=== PATIENT | male | born 1930 | race Caucasian/White ===

== ENCOUNTER → 2016-04-15 | Outpatient (CLI) | payer MEDICARE ==
[2016-04-15 11:40] LABS: MEAN CORPUSCULAR HEMOGLOBIN 29.2 PG (26.0-34.0); MEAN CORPUSCULAR HGB CONC 33.4 g/dL (31.0-37.0); MEAN CORPUSCULAR VOLUME 87 FL (80-100); MEAN PLATELET VOLUME 9.3 FL (6.0-9.5); PLATELET COUNT 126 10^3uL (150-450); WHITE BLOOD COUNT 3.61 10^3uL (4.0-11.0)
[2016-04-15 11:50] LABS: BAND NEUTROPHILS % 6 % (0-6); EOSINOPHILS % 2 % (0-4); LYMPHOCYTES # 0.4 #; MONOCYTES % 1 % (3-11); RBC MORPH NORMAL (NORMAL); SEGMENTED NEUTROPHILS % 81 % (51-67); TOTAL CELLS COUNTED 100
[2016-04-15 12:17] LABS: ALBUMIN 3.8 g/dL (3.4-5.0); ANION GAP 13.4 MEQ/L (3-15); CALCULATED IONIZED CALCIUM 4.2 mg/dL (3.8-4.6); PHOSPHORUS 3.5 mg/dL (2.4-4.9); TOTAL PROTEIN 6.8 g/dL (6.4-8.5)
== END ==
LOC: LAB 11:28
PROVIDERS: ATTEND Internal Medicine Hematology & Oncology
DX: C82.01 Follicular lymphoma grade I, lymph nodes of head, face, and neck (principal)
CPT/HCPCS: 36415; 80053; 83615; 83735; 84100; 85007; 85027

== ENCOUNTER 2016-04-18 09:55 | Day surgery (SDC) | payer MEDICARE ==
[~2016-04-18] VITALS: Ht 182.9 cm; Wt 69.0 kg
[~2016-04-18 09:55] MED LIST: HEPARIN 5000 UNIT/0.5 ML SYRINGE ONE; LACTATED RINGERS 1,000 ML IV SCH; LIDOCAINE/EPINEPHRINE 1% 1:100,000 (XYLOCAINE) 30 ML VIAL INJ ONE; NS FLUSH 10 ML PRN IV; NS FLUSH 3 ML PRN IV; ceFAZolin 2,000 MG in SODIUM CHLORIDE VIAL (PF) 20 ML IV SCH
[2016-04-18 10:17] VITALS: BP 143/86
[2016-04-18] MEDS ORDERED: ALFENTANIL 500 MCG/ML (ALFENTA) 5 ML AMP IV ONE (11:48)
[2016-04-18] MEDS ORDERED: MIDAZOLAM 2 MG/2 ML (VERSED) VIAL ONE (11:48)
[2016-04-18] MEDS ORDERED: PROPOFOL 20 ML IV ONE (11:49)
[2016-04-18 13:22] VITALS: BP 125/73
[2016-04-18 13:35] VITALS: BP 112/56
[2016-04-18] MEDS ORDERED: morphine INJ 4 MG/ML 1 ML SYRINGE IV PRN (13:35)
[2016-04-18] MEDS ORDERED: ONDANSETRON 2 MG/ML (Z0FRAN) 2 ML VIAL IV PRN (13:35)
[2016-04-18] MEDS ORDERED: METOCLOPRAMIDE 10 MG/2 ML (REGLAN) VIAL IV PRN (13:35)
--- NOTE | 2016-04-18 13:50 | NUR ---
PATIENT AND SPOUSE ASK ABOUT TREATMENT THURSDAY AND WHEN TO ARRIVE. [facility] CONTACTED AND NURSE UNAVAILABLE. PATIENT AND SPOUSE ARE READY TO GO. WILL GIVE NUMBER TO [facility] TO CONTACT PATIENT AT HOME FOR TREATMENT PLAN FOR THURSDAY.
== END 2016-04-18 13:58 | disposition home or self-care (01) ==
LOC: ASC 09:55
PROVIDERS: ATTEND Surgery
DX: C82.90 Follicular lymphoma, unspecified, unspecified site (principal); E78.00 Pure hypercholesterolemia, unspecified; J45.909 Unspecified asthma, uncomplicated; Z95.0 Presence of cardiac pacemaker
CPT/HCPCS: 36561; 77001; 93005; C1788; J1644; J2250; J7120

== ENCOUNTER → 2016-04-28 | Outpatient (CLI) | payer MEDICARE ==
[2016-04-28 10:20] LABS: MEAN CORPUSCULAR HEMOGLOBIN 29.9 PG (26.0-34.0); MEAN CORPUSCULAR HGB CONC 32.8 g/dL (31.0-37.0); MEAN CORPUSCULAR VOLUME 91 FL (80-100); MEAN PLATELET VOLUME 9.8 FL (6.0-9.5); PLATELET COUNT 132 10^3uL (150-450); WHITE BLOOD COUNT 19.13 10^3uL (4.0-11.0)
[2016-04-28 10:41] LABS: BAND NEUTROPHILS % 4 % (0-6); EOSINOPHILS % 2 % (0-4); LYMPHOCYTES # 0.6 #; MONOCYTES # 1.5 #; MONOCYTES % 8 % (3-11); RBC MORPH NORMAL (NORMAL); SEGMENTED NEUTROPHILS % 83 % (51-67); TOTAL CELLS COUNTED 100
== END ==
LOC: LAB 09:57
PROVIDERS: ATTEND Internal Medicine Hematology & Oncology
DX: C82.01 Follicular lymphoma grade I, lymph nodes of head, face, and neck (principal)
CPT/HCPCS: 36415; 85025

== ENCOUNTER 2016-05-05 09:58 | Outpatient (RCR) | payer MEDICARE ==
[~2016-05-05 09:58] MED LIST changes: +AC500T PO; +ACET325T38; +ACHYD1T PO; +ALBU0.8322; +ALBU8.5H2 INH; +ASPI325T4 PO; +CALC1TAB3 PO; +CALC300T10 PO; +FLUT16SP NSEACH; +FLUT1DIS2; -HEPARIN 5000 UNIT/0.5 ML SYRINGE ONE; +IBUP100T46; -LACTATED RINGERS 1,000 ML IV SCH; -LIDOCAINE/EPINEPHRINE 1% 1:100,000 (XYLOCAINE) 30 ML VIAL INJ ONE; +LORA10TA76 PO; +LOVA10TA PO; -NS FLUSH 10 ML PRN IV; -NS FLUSH 3 ML PRN IV; +OMEP20CA6 PO; +RANI150T15 PO; +TSSN473B PO; -ceFAZolin 2,000 MG in SODIUM CHLORIDE VIAL (PF) 20 ML IV SCH
[2016-05-05 10:11] LABS: BASOPHILS % (AUTO) 0 % (0-2); EOSINOPHILS # (AUTO) 0.4 10^3uL; EOSINOPHILS % (AUTO) 3 % (0-4); LYMPHOCYTES # (AUTO) 0.4 X10^3; MEAN CORPUSCULAR HEMOGLOBIN 29.9 PG (26.0-34.0); MEAN CORPUSCULAR HGB CONC 33.2 g/dL (31.0-37.0); MEAN CORPUSCULAR VOLUME 90 FL (80-100); MEAN PLATELET VOLUME 10.7 FL (6.0-9.5); MONOCYTES # (AUTO) 1.2 X10^3; MONOCYTES % (AUTO) 9 % (3-11); NEUTROPHILS # (AUTO) 11.6 X10^3; NEUTROPHILS % (AUTO) 85 % (51-67); PLATELET COUNT 102 10^3uL (150-450); WHITE BLOOD COUNT 13.71 10^3uL (4.0-11.0)
[2016-05-12 09:53] LABS: MEAN CORPUSCULAR HGB CONC 33.4 g/dL (31.0-37.0); MEAN CORPUSCULAR VOLUME 90 FL (80-100); MEAN PLATELET VOLUME 10.3 FL (6.0-9.5); PLATELET COUNT 115 10^3uL (150-450); WHITE BLOOD COUNT 6.38 10^3uL (4.0-11.0)
[2016-05-12 09:58] LABS: BAND NEUTROPHILS % 1 % (0-6); EOSINOPHILS % 6 % (0-4); LYMPHOCYTES # 0.7 #; MONOCYTES # 0.4 #; MONOCYTES % 6 % (3-11); RBC MORPH NORMAL (NORMAL); SEGMENTED NEUTROPHILS % 76 % (51-67); TOTAL CELLS COUNTED 100
[2016-05-12 10:09] LABS: ALBUMIN 4.5 g/dL (3.4-5.0); ANION GAP 16.2 MEQ/L (3-15); CALCULATED IONIZED CALCIUM 4.1 mg/dL (3.8-4.6); MAGNESIUM* 1.9 mg/dL (1.6-2.3); TOTAL PROTEIN 7.5 g/dL (6.4-8.5)
[2016-05-19 08:02] LABS: MEAN CORPUSCULAR HEMOGLOBIN 30.7 PG (26.0-34.0); MEAN CORPUSCULAR VOLUME 90 FL (80-100); PLATELET COUNT 87 10^3uL (150-450); WHITE BLOOD COUNT 4.86 10^3uL (4.0-11.0)
[2016-05-19 08:11] LABS: ANISOCYTOSIS SLIGHT; BAND NEUTROPHILS % 0 % (0-6); EOSINOPHILS % 12 % (0-4); LYMPHOCYTES # 0.5 #; MONOCYTES # 0.3 #; MONOCYTES % 8 % (3-11); RBC MORPH SEE REFERENCE (NORMAL); SEGMENTED NEUTROPHILS % 69 % (51-67); TOTAL CELLS COUNTED 100
[2016-05-26 08:12] LABS: MEAN CORPUSCULAR HEMOGLOBIN 31.3 PG (26.0-34.0); MEAN CORPUSCULAR HGB CONC 33.4 g/dL (31.0-37.0); MEAN CORPUSCULAR VOLUME 94 FL (80-100); MEAN PLATELET VOLUME 9.7 FL (6.0-9.5); PLATELET COUNT 78 10^3uL (150-450); WHITE BLOOD COUNT 7.49 10^3uL (4.0-11.0)
[2016-05-26 08:28] LABS: BAND NEUTROPHILS % 7 % (0-6); EOSINOPHILS % 3 % (0-4); LYMPHOCYTES # 0.2 #; MONOCYTES # 0.1 #; MONOCYTES % 2 % (3-11); RBC MORPH NORMAL (NORMAL); SEGMENTED NEUTROPHILS % 85 % (51-67); TOTAL CELLS COUNTED 100
[2016-06-02 08:29] LABS: BASOPHILS % (AUTO) 0 % (0-2); EOSINOPHILS # (AUTO) 0.3 10^3uL; EOSINOPHILS % (AUTO) 5 % (0-4); LYMPHOCYTES # (AUTO) 0.3 X10^3; MEAN CORPUSCULAR HEMOGLOBIN 31.5 PG (26.0-34.0); MEAN CORPUSCULAR HGB CONC 33.4 g/dL (31.0-37.0); MEAN CORPUSCULAR VOLUME 94 FL (80-100); MEAN PLATELET VOLUME 9.9 FL (6.0-9.5); MONOCYTES # (AUTO) 0.4 X10^3; MONOCYTES % (AUTO) 7 % (3-11); NEUTROPHILS # (AUTO) 5.1 X10^3; NEUTROPHILS % (AUTO) 82 % (51-67); PLATELET COUNT 105 10^3uL (150-450)
[2016-06-09 08:26] LABS: MEAN CORPUSCULAR HGB CONC 33.8 g/dL (31.0-37.0); MEAN CORPUSCULAR VOLUME 94 FL (80-100); MEAN PLATELET VOLUME 9.7 FL (6.0-9.5); PLATELET COUNT 160 10^3uL (150-450); WHITE BLOOD COUNT 4.48 10^3uL (4.0-11.0)
[2016-06-09 08:46] LABS: ALBUMIN 4.5 g/dL (3.4-5.0); CALCULATED IONIZED CALCIUM 4.6 mg/dL (3.8-4.6); MAGNESIUM* 1.7 mg/dL (1.6-2.3); TOTAL PROTEIN 7.4 g/dL (6.4-8.5)
[2016-06-09 09:08] LABS: MEAN CORPUSCULAR HEMOGLOBIN 31.6 PG (26.0-34.0)
[2016-06-09 09:11] LABS: BAND NEUTROPHILS % 0 % (0-6); EOSINOPHILS % 3 % (0-4); LYMPHOCYTES # 0.6 #; MONOCYTES # 0.1 #; MONOCYTES % 3 % (3-11); RBC MORPH NORMAL (NORMAL); SEGMENTED NEUTROPHILS % 81 % (51-67); TOTAL CELLS COUNTED 100
[2016-06-16 09:24] LABS: BASOPHILS % (AUTO) 1 % (0-2); EOSINOPHILS # (AUTO) 0.3 10^3uL; EOSINOPHILS % (AUTO) 6 % (0-4); LYMPHOCYTES # (AUTO) 0.3 X10^3; MEAN CORPUSCULAR HGB CONC 33.6 g/dL (31.0-37.0); MEAN CORPUSCULAR VOLUME 95 FL (80-100); MONOCYTES # (AUTO) 0.6 X10^3; MONOCYTES % (AUTO) 13 % (3-11); NEUTROPHILS # (AUTO) 3.5 X10^3; NEUTROPHILS % (AUTO) 74 % (51-67); PLATELET COUNT 145 10^3uL (150-450); WHITE BLOOD COUNT 4.73 10^3uL (4.0-11.0)
[2016-06-16 09:28] LABS: MEAN CORPUSCULAR HEMOGLOBIN 31.8 PG (26.0-34.0)
== END 2016-07-09 19:17 | disposition home or self-care (01) ==
LOC: LAB 09:58 → EDSTATUS 10:18 → LAB 10:19
PROVIDERS: ATTEND Internal Medicine Hematology & Oncology
DX: C82.01 Follicular lymphoma grade I, lymph nodes of head, face, and neck (principal)
CPT/HCPCS: 36415; 80053; 83615; 83735; 84100; 85007; 85025; 85027